=== PATIENT | male | born 1950 | race Caucasian/White ===

== ENCOUNTER 2025-06-15 08:11 | Emergency (ER) | payer MEDICARE, SELFPAY ==
--- NOTE | ~2025-06-15 | XR_ITS ---
EXAMINATION: XR foot LT min 3V DATE: 06/15/2025 10:30 INDICATION: Swelling left foot TECHNIQUE: Left foot x-rays were obtained. COMPARISON: None. FINDINGS: Borderline metatarsus primus deformity with mild degenerative appearing changes at the great toe MTP joint. Mild soft tissue swelling may also be present along the medial margin of the great toe MTP joint. Bones and soft tissues otherwise appear within normal limits. No suspicious radiopaque foreign body. IMPRESSION: 1. Chronic appearing bony findings at the great toe MTP joint; there also appears to be mild soft tissue swelling present. Reviewed, dictated and finalized at location A. NCIAL SALES REPRESENTATIVE IMPRESSION: 1. Chronic appearing bony findings at the great toe MTP joint; there also appea rs to be mild soft tissue swelling present.
[2025-06-15 08:13] VITALS: BP 154/73; PULSE 98; RESP 16; TEMP 37.3; O2SAT 98
[2025-06-15 09:40] VITALS: BP 162/73; PULSE 66; RESP 16; O2SAT 99
[2025-06-15] MEDS: ACETAMINOPHEN 500 MG TABLET 1000 MG PO (10:16)
[2025-06-15] MEDS: KETOROLAC 30 MG/ML VIAL (*BKC) IM (10:20)
--- NOTE | 2025-06-15 10:21 | ED.GENADULT ---
HPI - General Adult General Chief complaint: Extremity Problem,Nontraumatic Stated complaint: L FOOT PAIN,SWELLING,REDNESS Time Seen by Provider: 06/15/25 09:50 History of Present Illness HPI narrative: 74-year-old male presenting with left MTP joint pain, redness, and swelling. Patient 1st noticed soreness last Sunday. He states he woke up this morning with the erythema and edema. Denies any history of trauma or fevers/chills as well as no history of blood clots or gout. Related Data Home Medications ?Medication ?Instructions ?Recorded ?Confirmed ?Last Taken ?Type aspirin 81 mg chewable tablet 81 mg PO DAILY 06/16/19 02/24/25 Unknown History atorvastatin 20 mg tablet 20 mg PO DAILY 06/16/19 02/24/25 Unknown History cholecalciferol (vitamin D3) 50 2,000 unit PO DAILY 06/16/19 02/24/25 Unknown History mcg (2,000 unit) tablet (Vitamin D3) glipizide 10 mg tablet, extended 10 mg PO DAILY 06/16/19 02/24/25 Unknown History release 24 hr losartan 25 mg tablet 25 mg PO DAILY 06/16/19 02/24/25 Unknown History carvedilol 12.5 mg tablet (Coreg) 12.5 mg PO Q12H 02/06/24 02/24/25 Unknown History dapagliflozin propanediol 10 mg 10 mg PO DAILY 02/06/24 02/24/25 Unknown History tablet (Farxiga) gemfibrozil 600 mg tablet 600 mg PO DAILY 02/06/24 02/24/25 Unknown History metformin 500 mg tablet 750 mg PO BID 02/06/24 02/24/25 Unknown History Allergies Allergy/AdvReac Type Severity Reaction Status Date / Time Sulfa (Sulfonamide Allergy Mild Itching Verified 06/15/25 08:13 Antibiotics) RAFAT Inhibitors AdvReac Swelling Verified 06/15/25 08:13 Review of Systems Review of Systems: All systems reviewed & are unremarkable except as noted in HPI and below PMFSH Past Medical History Medical History (Updated 06/15/25 @ 11:36 by ROBERTA Schultz) DM renal manif type II Hypertensive CKD (chronic kidney disease) CKD (chronic kidney disease) Mitral valve prolapse HLD (hyperlipidemia) Diabetes type 2, controlled HTN (hypertension) Glaucoma Surgical History Surgical History Hx of cardiac catheterization Hx of tonsillectomy Family History Family History Other Hypertension Social History Social History Social History: Smoking status: Never smoker Second hand tobacco smoke exposure: No Alcohol intake: never Substance use: never Substance use type: does not use Lack of Transportation: No Lack of Food: Never True Current Housing: I Have Housing Concerned About Future Housing: No Difficulty Paying Gas/Electric Bills: No Difficulty Paying for Meds: No Currently Unemployed: YES Education: Don't Know Difficulty w/ Childcare or Family Care: No Living arrangements: with family Occupation/Education: retired Gender identity (if verbalized by the patient): Male Sexual Orientation (if Verbalized by the Patient): Straight or Heterosexual Exam Narrative: GENERAL: Well-appearing, well-nourished, and in no acute distress. HEAD: Normocephalic, atraumatic. EYES: PERRLA and EOMI. ENT: Nares clear, no rhinorrhea or epistaxis. Mucous membranes moist. Oropharynx without tonsillar hypertrophy exudate or other lesions. Bilateral TMs pearly bashir non-bulging NECK: Supple. No adenopathy or masses. No carotid bruits or JVD CHEST: Clear to auscultation. No respiratory distress. No wheezes rales or rhonchi HEART: Regular rate and rhythm. No murmur heard. Normal peripheral pulses. ABDOMEN: Soft, nontender, nondistended, normal active bowel sounds. EXTREMITIES: Left LE erythema, edema, and warmth overlying the MTP joint. Good ROM, painful for patient. SKIN: Warm, dry, no rash. NEURO: No focal deficits. Alert and oriented x3. PSYCH: Normal mood and affect Course Vital Signs Vital signs: Vital Signs Temperature 99.1 F 06/15/25 08:13 Pulse Rate 98 06/15/25 08:13 Respiratory Rate 16 06/15/25 08:13 Blood Pressure 154/73 H 06/15/25 08:13 Pulse Oximetry 98 06/15/25 08:13 Oxygen Delivery Room Air 06/15/25 08:13 Temperature 99.1 F 12/08/25 08:13 Pulse Rate 62 06/15/25 11:31 Respiratory Rate 16 06/15/25 11:31 Blood Pressure 130/94 H 06/15/25 11:31 Pulse Oximetry 98 06/15/25 11:31 Oxygen Delivery Room Air 06/15/25 08:13 [facility] Narrative Medical decision making narrative: 74-year-old male presenting with left MTP joint pain, redness, and swelling. Patient 1st noticed soreness last Sunday. He states he woke up this morning with the erythema and edema. Denies any history of trauma or fevers/chills as well as no history of blood clots or gout. Upon my initial assessment patient is stable, afebrile, and appears nontoxic. Administered Tylenol and Toradol which improved patient's symptoms as he was able ambulate around his room endorsing that he was unable to do this before. Labs demonstrate mild leukocytosis at 10.7 and a mildly elevated CRP at 2.6. CMP demonstrated elevated BUN and creatinine. Addressed this with the patient who endorsed he is aware of this and actively seeing a receivable executive. Declined fluids. Imaging demonstrates chronic appearing bony findings at the great toe MTP joint; there also appears to be mild soft tissue swelling present. Etiology is likely gout due to the patient's significant history of diabetes and protein-rich diet. Plan for discharge home with symptom control as well as antibiotic to cover for cellulitis. Differential diagnosis and treatment plan were discussed with the patient. Patient agrees with discussion and after shared medical decision making agrees with plan of care. All questions were answered to the patient's satisfaction. The patient is appropriate for outpatient treatment and follow-up. Given reasons to return. Differential Diagnosis Differential Diagnosis: Differential diagnostic considerations for extremity problems include sprain/strain, fracture, DVT, herpes zoster, gout, cellulitis, superficial thrombophlebitis, physiologic edema. Medical Records I have reviewed the following patient records and this information was taken into consideration when formulating the assessment and plan.: previous labs and previous ER visits Lab Data [facility] Lab Attestation statement: I personally reviewed the patient's lab results. 06/15/25 10:40 06/15/25 10:40 Labs: Lab Results 06/15/25 Range/Units 10:40 WBC 10.7 H (4.5-10.0) K/mm3 RBC 4.86 (4.6-6.20) M/mm3 Hgb 14.7 (14.0-18.0) g/dL Hct 44.4 (42.0-52.0) % MCV 91.4 (80-100) fl MCH 30.2 (26-34) pg MCHC 33.1 (32-36) g/dl RDW 13.8 (11.5-14.5) % Plt Count 257 (150-375) k/mm3 MPV 10.8 H (7.4-10.4) fl Immature Gran % (Auto) 0.3 (0-0.5) % Neut % (Auto) 81.3 H (45.5-73.1) % Lymph % (Auto) 7.8 L (18.3-44.2) % [place] % (Auto) 8.0 (2.6-8.5) % Eos % (Auto) 2.1 (0-4.4) % Baso % (Auto) 0.5 (0.2-1.2) % Lymph # (Auto) 0.83 L (0.9-3.2) K/mm3 [place] # (Auto) 0.9 H (0.1-0.6) K/mm3 Eos # (Auto) 0.2 (0-0.3) K/mm3 Baso # (Auto) 0.1 (0.0-0.1) K/mm3 Abs Immat Gran (auto) 0.03 (0.00-0.031) K/mm3 Absolute Neuts (auto) 8.7 H (1.3-6.7) K/mm3 Absolute Nucleated RBC 0.000 (0.0-0.012) K/mm3 Nucleated RBC % 0.0 (0.0-0.2) % Sodium 141 (137-145) mmol/L Potassium 3.8 (3.4-5.0) mmol/L Chloride 102 (98-107) mmol/L Carbon Dioxide 30 (22-30) mmol/L Anion Gap 9 (4-12) mmol/L BUN 35 H D (9-20) mg/dL Creatinine 1.68 H (0.7-1.3) mg/dL Estim Creat Clear Calc 34 ml/min Estimated GFR 40 L (59 - ) Glucose 117 H (65-110) mg/dL Calcium 9.8 (8.4-10.2) mg/dL Total Bilirubin 0.6 (0.2-1.3) mg/dL AST 26 (17-59) U/L ALT 16 (6-50) U/L Alkaline Phosphatase 89 (38-126) U/L C-Reactive Protein 2.6 H (<1.0) mg/dL Total Protein 8.5 H (6.3-8.2) g/dL Albumin 4.8 (3.5-5.1) g/dL Imaging Data Attestation: I personally reviewed and interpreted this imaging study as follows: Radiologist's impression: ITS Impressions Foot X-Ray 06/15/25 10:32 IMPRESSION: 1. Chronic appearing bony findings at the great toe MTP joint; there also appears to be mild soft tissue swelling present. Discharge Plan Discharge Clinical Impression: Acute foot pain, Great toe pain Patient Disposition: Home Condition: Stable Instructions: Antibiotic Form, Cellulitis (ED), Gout (ED) Additional Instructions: Return if symptoms worsen or concerns: any increasing redness, swelling, pain, or fever over 101. Take antibiotics as directed and Tylenol and naproxen as needed for pain. May return for any other symptoms concerning to you. Patient Language: Pashto Prescriptions: New cephalexin 500 mg capsule 500 mg PO Q6H Qty: 20 0RF acetaminophen [Tylenol Extra Strength] 500 mg tablet 500 mg PO Q6H PRN (Reason: pain) Qty: 20 0RF naproxen 500 mg tablet 500 mg PO BID PRN (Reason: pain) Qty: 10 0RF No Action gemfibrozil 600 mg tablet 600 mg PO DAILY Rx Instructions: as per nephrology dapagliflozin propanediol [Farxiga] 10 mg tablet 10 mg PO DAILY Patient Comments: as per nephro carvedilol [Coreg] 12.5 mg tablet 12.5 mg PO Q12H Patient Comments: as per nephro Rx Instructions: must administer with a meal/food metformin 500 mg tablet 750 mg PO BID epinephrine [EpiPen 2-Daniel] 0.3 mg/0.3 mL auto-injector 0.3 mg IM Q4H PRN (Reason: anaphylaxis) Qty: 2 0RF atorvastatin 20 mg Tablet 20 mg PO DAILY glipizide 10 mg Tablet Extended Release 24hr 10 mg PO DAILY losartan 25 mg Tablet 25 mg PO DAILY aspirin 81 mg Tablet,Chewable 81 mg PO DAILY cholecalciferol (vitamin D3) [Vitamin D3] 2,000 unit Tablet 2,000 unit PO DAILY furosemide [Lasix] 20 mg Tablet 20 mg PO BID Qty: 0 0RF Rx Instructions: RESTART Tuesday, June 18, 2019 Follow-up/Referrals: Spenser Faust MD [Primary Care Provider, Family Practice]
[2025-06-15 10:30] VITALS: PULSE 68; RESP 18; O2SAT 100
[2025-06-15 10:31] VITALS: BP 169/86; PULSE 72; RESP 20; O2SAT 100
[2025-06-15 10:48] LABS: Hematocrit 44.4 % (42.0-52.0); Hemoglobin 14.7 g/dL (14.0-18.0); Immature Granulocyte Percent A 0.3 % (0-0.5); Lymphocytes Absolute Auto 0.83 K/mm3 (0.9-3.2); Mean Corpuscular HGB Conc 33.1 g/dl (32-36); Mean Corpuscular Hemoglobin 30.2 pg (26-34); Mean Corpuscular Volume 91.4 fl (80-100); Nucleated Red Blood Cells Absolute Auto 0.000 K/mm3 (0.0-0.012); Nucleated Red Blood Cells Perc 0.0 % (0.0-0.2); Platelet Count Result 257 k/mm3 (150-375); Red Blood Count 4.86 M/mm3 (4.6-6.20); White Blood Count 10.7 K/mm3 (4.5-10.0)
[2025-06-15 11:17] LABS: Alanine Aminotransferase 16 U/L (6-50); Albumin Level 4.8 g/dL (3.5-5.1); Alkaline Phosphatase 89 U/L (38-126); Anion Gap 9 mmol/L (4-12); Aspartate Amino Transferase 26 U/L (17-59); Bilirubin,Total 0.6 mg/dL (0.2-1.3); Blood Urea Nitrogen 35 mg/dL (9-20); CRP 2.6 mg/dL (<1.0); Calcium 9.8 mg/dL (8.4-10.2); Carbon Dioxide 30 mmol/L (22-30); Chloride 102 mmol/L (98-107); Estimated CRCL calculation 34 ml/min; Estimated Glomerular Filt Rate 40; Glucose 117 mg/dL (65-110); Potassium 3.8 mmol/L (3.4-5.0); Sodium 141 mmol/L (137-145); Total Protein 8.5 g/dL (6.3-8.2)
[2025-06-15 11:31] VITALS: BP 130/94; PULSE 62; RESP 16; O2SAT 98
== END 2025-06-15 12:00 | disposition home or self-care (01) ==
PROVIDERS: PCP Family Medicine
DX: M79.672 Pain in left foot (principal); I12.9 Hypertensive chronic kidney disease with stage 1 through stage 4 chronic kidney disease, or unspecified chronic kidney disease; E11.22 Type 2 diabetes mellitus with diabetic chronic kidney disease; N18.9 Chronic kidney disease, unspecified; Z79.84 Long term (current) use of oral hypoglycemic drugs
CPT/HCPCS: 36415; 73630; 80053; 85025; 86140; 96372; 99283; A9270; J1885